=== PATIENT | female | born 1970 | race Caucasian/White ===

== ENCOUNTER 2022-11-16 14:03 | Emergency (ER) | payer OTHER ==
[~2022-11-16] VITALS: Ht 162.6 cm; Wt 816.5 kg
[2022-11-16 14:08] VITALS: BP_SYST 137; PULSE 83; RESP 18; TEMP 98; O2SAT 95
[2022-11-16] MEDS ORDERED: LORazepam 2 MG/ML VIAL IM ONE (14:30)
--- NOTE | 2022-11-16 14:37 | NUR ---
RECEIVE FROM LISA MARTINEZ, PATIENT C/O INTERMITENT SOB. VSS. PATIENT ON ROOM AIR, NO RESPIRATORY DISTRESS NOTED. DENIES PAIN. SIDE RAILES UP X2. PATIENT ON MONITOR.
[2022-11-16 14:49] LABS: BASOPHILS % (AUTO) 0.6 % (0.0-2.0); EOSINOPHILS # (AUTO) 0.1 K/uL (0.0-0.4); EOSINOPHILS % (AUTO) 1.2 % (0.0-4.0); HEMATOCRIT 44.5 % (36-48); HEMOGLOBIN 14.5 g/dL (12.0-16.0); LYMPHOCYTES # (AUTO) 2.2 K/uL (1.0-5.5); LYMPHOCYTES % (AUTO) 27.7 % (20.5-51.5); MEAN CORPUSCULAR HEMOGLOBIN 29 pg (27-31); MEAN CORPUSCULAR HGB CONC 33 % (32-36); MEAN CORPUSCULAR VOLUME 87 fL (79.0-98.0); MONOCYTES # (AUTO) 0.7 K/uL (0.0-1.0); NEUTROPHILS # (AUTO) 4.8 K/uL (1.8-7.7); NEUTROPHILS % (AUTO) 61.5 % (40.0-70.0); PLATELET COUNT (AUTO) 321 K/uL (130-430); RED BLOOD CELL COUNT(AUTO) 5.11 MIL/uL (4.2-6.2); RED CELL DISTRIBUTION WIDTH 13.6 % (9.0-15.0); WHITE BLOOD COUNT (AUTO) 7.8 K/uL (4.8-10.8)
[2022-11-16 15:01] LABS: ALANINE AMINOTRANSFERASE 21 U/L (12-78); ALBUMIN 3.9 g/dL (3.4-4.8); ANION GAP 9 (5-15); ASPARTATE AMINOTRANSFERASE 19 U/L (10-37); CALCIUM 9.2 mg/dL (8.4-11.0); CHLORIDE 104 mmol/L (98-107); CREATININE 0.85 mg/dL (0.55-1.30); GFR AFRICAN AMERICAN 91 mL/min (>90); GLUCOSE 131 mg/dL (74-106); TOTAL BILIRUBIN 0.7 mg/dL (0.0-1.0); UREA NITROGEN, BLOOD 11 mg/dL (8-21)
--- NOTE | 2022-11-16 15:12 | NUR ---
DOCTOR AT BEDSIDE FOR EXAM.
--- NOTE | 2022-11-16 15:13 | NUR ---
ADMINISTER ATIVAN ORDER IM TO LEFT DELTOID
--- NOTE | 2022-11-16 16:50 | NUR ---
XR CHEST COMPLETED
[2022-11-16] MEDS ORDERED: LORA-259 PO (17:00)
--- NOTE | 2022-11-16 17:10 | NUR ---
DR GREEN AT BEDSIDE TO DISCUSS PLAN OF DISCHARGE
[2022-11-16 17:36] VITALS: BP_SYST 118; PULSE 72; RESP 18; TEMP 97.9; O2SAT 96
--- NOTE | 2022-11-16 17:39 | NUR ---
Patient given written and verbal discharge instructions and verbalizes understanding. ER MD discussed with patient the results and treatment provided. Patient in stable condition. ID arm band removed. Rx of ATIVAN given. Patient educated on pain management and to follow up with PMD. Pain Scale 0/10. Opportunity for questions provided and answered. Medication side effect fact sheet provided.
== END 2022-11-16 17:39 | disposition home or self-care (01) ==
LOC: SED 14:03
DX: R07.9 Chest pain, unspecified (principal); F41.9 Anxiety disorder, unspecified; R06.02 Shortness of breath; E11.9 Type 2 diabetes mellitus without complications; Z79.899 Other long term (current) drug therapy
CPT/HCPCS: 99285; 71045; 80053; 83880; 85025; 85379; 84484; 36415; 93005; 96372; J2060